=== PATIENT | female | born 1995 | race Hispanic/Latino ===

== ENCOUNTER 2018-01-27 20:43 | Emergency (ER) | payer OTHER, SELFPAY ==
[2018-01-27 21:22] LABS: Absolute Lymphocytes (CBC) 3.4 K/uL (0.7-4.9); Absolute Monocytes 0.5 K/uL (0.1-1.3); Absolute Neutrophil 4.2 K/uL (1.8-8.0); Basophils % 0.4 % (0-1.3); Eosinophils % 1.2 % (0-4.4); Hematocrit 37.8 % (36.0-45.0); Lymphocytes % 41.8 % (15.3-44.8); MCH 26.4 pg (27.0-35.0); MCV 78.8 fL (80-100); MPV 7.7 fL (7.6-11.3); Monocytes % 5.8 % (3.3-12.3)
[2018-01-27 21:26] LABS: Urine Blood 3+ (NEG); Urine Glucose NEGATIVE (NEG); Urine Protein NEGATIVE (NEG)
[2018-01-27 21:32] LABS: Urine Bacteria <20 /HPF (<20); Urine Culture Reflex Order NOT NEEDED; Urine Mucus 1+ /HPF (NONE SEEN); Urine RBC <5 /HPF (NONE SEEN)
[2018-01-27 21:39] LABS: ALT/SGPT 20 U/L (12-78); AST/SGOT 9 U/L (15-37); Albumin 4.7 g/dL (3.4-5.0); Alkaline Phosphatase 69 U/L (45-117); Amylase Level 47 U/L (25-115); BUN Blood Urea Nitrogen 15 mg/dL (7-18); Bicarbonate 27 mmol/L (21-32); Bilirubin Direct 0.1 mg/dL (0-0.2); Bilirubin Total 0.6 mg/dL (0.2-1.0); Glucose Level 86 mg/dL (74-106); Lipase 85 U/L (73-393); Potassium 3.3 mmol/L (3.5-5.1); Protein, Total 7.9 g/dL (6.4-8.2); Sodium Level 141 mmol/L (136-145)
[2018-01-27] MEDS ORDERED: NA CHLORIDE 0.9% 1,000 ML ONE (21:54)
[2018-01-27] MEDS ORDERED: KETOROLAC 30 MG/ML INJ ONE (21:54)
[2018-01-27] MEDS ORDERED: POTASSIUM 25 MEQ EFFERV TAB ONE (22:12)
--- NOTE | 2018-01-27 22:59 | ER ---
Nurse's Notes [facility] Name: Lindsey Fernandez Age: 22 yrs Sex: Female : 1995 Arrival Date: 01/27/2018 Time: 20:50 Bed 6 Private MD: Mil Khalil P Diagnosis: Pelvic and perineal pain;Endometriosis;Hypokalemia Presentation: 01/27 20:58 Presenting complaint: Patient states: "They think I have endometriosis. I have an lk1 exploratory surgery coming up. I have cramps and pain shooting down my legs. I have a history of ovarian cysts, so it may be that, but I am in so much pain.". Transition of care: patient was not received from another setting of care. Onset of symptoms was January 26, 2018. Risk Assessment: Do you want to hurt yourself or someone else? Patient reports no desire to harm self or others. Initial Sepsis Screen: Does the patient meet any 2 criteria? No. Patient's initial sepsis screen is negative. Does the patient have a suspected source of infection? No. Patient's initial sepsis screen is negative. Care prior to arrival: Medication(s) given: Motrin, Tylenol. 20:58 Method Of Arrival: Ambulatory lk1 20:58 Acuity: ANUM 3 lk1 Triage Assessment: 21:15 General: Appears in no apparent distress. uncomfortable, Behavior is calm, cooperative. rv 21:15 Pain: Complains of pain in abdomen. EENT: No signs and/or symptoms were reported rv regarding the EENT system. Neuro: Level of Consciousness is awake, alert, obeys commands, Oriented to person, place, time, situation. Cardiovascular: Heart tones S1 S2 present. Respiratory: Airway is patent. GI: Reports lower abdominal pain, nausea. : No signs and/or symptoms were reported regarding the genitourinary system. Derm: Skin is intact. 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 - Social history:: Smoking status: Patient/guardian denies using tobacco. - Ebola Screening: : No symptoms or risks identified at this time. - Family history:: not pertinent. Screenin:10 Abuse screen: Denies threats or abuse. Denies injuries from another. Nutritional bp screening: No deficits noted. Tuberculosis screening: No symptoms or risk factors identified. Fall Risk None identified. Assessment: 21:15 GI: Bowel sounds present X 4 quads. Abd is soft and non tender. rv 22:41 Reassessment: ultrasound done at bedside. rv Vital Signs: 21:01 BP 110 / 69; Pulse 81; Resp 15; Temp 98.1(TE); Pulse Ox 99% on R/A; Weight 45.36 kg lk1 (R); Height 5 ft. 0 in. (152.40 cm); Pain 9/10; 21:46 BP 114 / 67; Pulse 97; Resp 16; Pulse Ox 100% on R/A; rv 22:42 BP 100 / 75; Pulse 71; Resp 16; Pulse Ox 100% on R/A; rv 21:01 Body Mass Index 19.53 (45.36 kg, 152.40 cm) lk1 ED Course: 20:50 Patient arrived in ED. al2 20:51 Mil Khalil MD is Private Physician. al2 21:00 Triage completed. lk1 21:02 Arm band placed on right wrist. lk1 21:09 Yobany Quintana, RN is Primary Nurse. bp 21:10 Patient has correct armband on for positive identification. Bed in low position. Call bp light in reach. Side rails up X2. 21:40 Chris Negro MD is Attending Physician. giovani 22:19 Ultrasound completed. Patient tolerated well. sg3 22:24 US Transvaginal Study (Probe) In Process Unspecified. EDMS 22:58 Mil Khalil MD is Referral Physician. giovani 23:15 No provider procedures requiring assistance completed. IV discontinued, bleeding rv controlled, No redness/swelling at site. Pressure dressing applied. Administered Medications: 21:55 Drug: NS 0.9% 1000 ml Route: IV; Rate: 1 bolus; Site: right antecubital; rv 22:43 Follow up: Response: No adverse reaction; IV Status: Completed infusion rv 21:55 Drug: TORadol 30 mg Route: IVP; Site: right antecubital; rv 22:44 Follow up: Response: No adverse reaction; Pain is decreased rv 22:41 Drug: Potassium Effervescent Tablet 25 mEq Route: PO; rv 23:17 Follow up: Response: No adverse reaction rv 22:43 CANCELLED (Duplicate Order): Potassium Chloride 20 mEq PO once rv Outcome: 22:58 Discharge ordered by . giovani 23:16 Discharged to home ambulatory. rv 23:16 Condition: good 23:16 Discharge instructions given to patient, Instructed on discharge instructions, follow up and referral plans. medication usage. 23:17 Patient left the ED. rv Signatures: Dispatcher [employer] EDMS Chris Negro MD MD cha Kluge, Leah, RN RN lk1 Yobany Quintana RN RN Alee Pollack Angelica al2 Vicente, Ronaldo RN RN rv
[2018-01-27] MEDS ORDERED: IBUPROFEN 200 MG TAB PO ONE (23:16)
--- NOTE | 2018-01-27 23:18 | EDPHYS ---
Physician Documentation [facility] Name: Lindsey Fernandez Age: 22 yrs Sex: Female : 1995 Arrival Date: 01/27/2018 Time: 20:50 Bed 6 Private MD: Mil Khalil P ED Physician Chris Negro HPI: 01/27 21:53 This 22 yrs old Female presents to ER via Ambulatory with complaints of giovani Abdominal Pain, Leg Pain. 21:53 The patient presents with pain. 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 - Social history:: Smoking status: Patient/guardian denies using tobacco. - Ebola Screening: : No symptoms or risks identified at this time. - Family history:: not pertinent. ROS: 21:54 Constitutional: Negative for fever, chills, and weight loss, Eyes: Negative for injury, giovani pain, redness, and discharge, ENT: Negative for injury, pain, and discharge, Neck: Negative for injury, pain, and swelling, Cardiovascular: Negative for chest pain, palpitations, and edema, Respiratory: Negative for shortness of breath, cough, wheezing, and pleuritic chest pain, Abdomen/GI: Negative for abdominal pain, nausea, vomiting, diarrhea, and constipation, Back: Negative for injury and pain, MS/Extremity: Negative for injury and deformity, Skin: Negative for injury, rash, and discoloration, Neuro: Negative for headache, weakness, numbness, tingling, and seizure, Psych: Negative for depression, anxiety, suicide ideation, homicidal ideation, and hallucinations, Allergy/Immunology: Negative for hives, rash, and allergies, Endocrine: Negative for neck swelling, polydipsia, polyuria, polyphagia, and marked weight changes, Hematologic/Lymphatic: Negative for swollen nodes, abnormal bleeding, and unusual bruising. 21:54 : Positive for pelvic pain, of the suprapubic area, right lower quadrant and left lower quadrant. Exam: 21:54 Constitutional: This is a well developed, well nourished patient who is awake, alert, giovani and in no acute distress. Head/Face: Normocephalic, atraumatic. Eyes: Pupils equal round and reactive to light, extra-ocular motions intact. Lids and lashes normal. Conjunctiva and sclera are non-icteric and not injected. Cornea within normal limits. Periorbital areas with no swelling, redness, or edema. ENT: Nares patent. No nasal discharge, no septal abnormalities noted. Tympanic membranes are normal and external auditory canals are clear. Oropharynx with no redness, swelling, or masses, exudates, or evidence of obstruction, uvula midline. Mucous membranes moist. Neck: Trachea midline, no thyromegaly or masses palpated, and no cervical lymphadenopathy. Supple, full range of motion without nuchal rigidity, or vertebral point tenderness. No Meningismus. Chest/axilla: Normal chest wall appearance and motion. Nontender with no deformity. No lesions are appreciated. Cardiovascular: Regular rate and rhythm with a normal S1 and S2. No gallops, murmurs, or rubs. Normal PMI, no JVD. No pulse deficits. Respiratory: Lungs have equal breath sounds bilaterally, clear to auscultation and percussion. No rales, rhonchi or wheezes noted. No increased work of breathing, no retractions or nasal flaring. Back: No spinal tenderness. No costovertebral tenderness. Full range of motion. Female : Normal external genitalia. Skin: Warm, dry with normal turgor. Normal color with no rashes, no lesions, and no evidence of cellulitis. MS/ Extremity: Pulses equal, no cyanosis. Neurovascular intact. Full, normal range of motion. Neuro: Awake and alert, GCS 15, oriented to person, place, time, and situation. Cranial nerves II-XII grossly intact. Motor strength 5/5 in all extremities. Sensory grossly intact. Cerebellar exam normal. Normal gait. Psych: Awake, alert, with orientation to person, place and time. Behavior, mood, and affect are within normal limits. 21:54 Abdomen/GI: Inspection: abdomen appears normal, Bowel sounds: normal, Palpation: mild abdominal tenderness, moderate abdominal tenderness, in the right lower quadrant and left lower quadrant, Liver: no appreciated palpable abnormalities, Hernia: not appreciated. Vital Signs: 21:01 BP 110 / 69; Pulse 81; Resp 15; Temp 98.1(TE); Pulse Ox 99% on R/A; Weight 45.36 kg lk1 (R); Height 5 ft. 0 in. (152.40 cm); Pain 9/10; 21:46 BP 114 / 67; Pulse 97; Resp 16; Pulse Ox 100% on R/A; rv 22:42 BP 100 / 75; Pulse 71; Resp 16; Pulse Ox 100% on R/A; rv 21:01 Body Mass Index 19.53 (45.36 kg, 152.40 cm) lk1 MDM: 21:40 Patient medically screened. [facility] 21:56 Data reviewed: vital signs, nurses notes, lab test result(s), radiologic studies, giovani ultrasound. 01/27 21:12 Order name: Amylase, Serum; Complete Time: 21:41 bp 01/27 21:12 Order name: Basic Metabolic Panel; Complete Time: 21:41 bp 01/27 21:12 Order name: CBC with Diff; Complete Time: 21:41 bp 01/27 21:12 Order name: Creatinine for Radiology; Complete Time: 21:41 bp 01/27 21:12 Order name: Hepatic Function; Complete Time: 21:41 bp 01/27 21:12 Order name: Lipase; Complete Time: 21:41 bp 01/27 21:12 Order name: Urine Microscopic Only; Complete Time: 21:41 bp 01/27 21:14 Order name: Urine Dipstick--Ancillary (enter results); Complete Time: 21:41 eb 01/27 21:14 Order name: Urine --Ancillary (enter results); Complete Time: 21:41 eb 01/27 21:51 Order name: US Transvaginal Study (Probe) [facility] 01/27 21:12 Order name: Urine Test (obtain specimen); Complete Time: 21:27 bp 01/27 21:12 Order name: IV Saline Lock; Complete Time: 21:26 bp 01/27 21:12 Order name: Labs collected and sent; Complete Time: 21:26 bp 01/27 21:12 Order name: Urine Dipstick-Ancillary (obtain specimen); Complete Time: 21:28 bp Administered Medications: 21:55 Drug: NS 0.9% 1000 ml Route: IV; Rate: 1 bolus; Site: right antecubital; rv 22:43 Follow up: Response: No adverse reaction; IV Status: Completed infusion rv 21:55 Drug: TORadol 30 mg Route: IVP; Site: right antecubital; rv 22:44 Follow up: Response: No adverse reaction; Pain is decreased rv 22:41 Drug: Potassium Effervescent Tablet 25 mEq Route: PO; rv 23:17 Follow up: Response: No adverse reaction rv 22:43 CANCELLED (Duplicate Order): Potassium Chloride 20 mEq PO once rv Disposition: 01/27/18 22:58 Discharged to Home. Impression: Pelvic and perineal pain, Endometriosis, Hypokalemia. - Condition is Stable. - Discharge Instructions: Abdominal Pain, Adult, Potassium Content of Foods, Ovarian Cyst, Pelvic Pain, Female, Pelvic Pain, Female, [id number], Ovarian Cyst, [id number], Hypokalemia. - Prescriptions for Tylenol- Codeine #3 300-30 mg Oral Tablet - take 2 tablets by ORAL route every 6 hours As needed; 26 tablet. Motrin IB 200 mg Oral Tablet - take 2 tablet by ORAL route every 6 hours As needed as needed with food; 30 tablet. - Medication Reconciliation Form, Thank You Letter, Antibiotic Education, Prescription Opioid Use form. - Follow up: Mil Khalil; When: 2 - 3 days; Reason: Recheck today's complaints, Continuance of care, Re-evaluation by your physician. - Problem is new. - Symptoms have improved. Signatures: Dispatcher [employer] EDMS Chris Negro MD MD cha Kluge, Leah RN RN lk1 Yobany Quintana, RN RN Leonides Delgado RN RN rv Corrections: (The following items were deleted from the chart) 22:43 21:56 Potassium Chloride Liquid 20 mEq PO once ordered. giovani rv 22:43 22:40 Potassium Chloride Liquid 20 mEq PO once ordered. rv rv 23:17 22:58 01/27/2018 22:58 Discharged to Home. Impression: Pelvic and perineal pain; rv Endometriosis; Hypokalemia. Condition is Stable. Discharge Instructions: Abdominal Pain, Adult, Pelvic Pain, Female, Pelvic Pain, Female, [id number], Potassium Content of Foods, Hypokalemia. Prescriptions for Tylenol-Codeine #3 300-30 mg Oral Tablet - take 2 tablets by ORAL route every 6 hours As needed; 26 tablet, Motrin IB 200 mg Oral Tablet - take 2 tablet by ORAL route every 6 hours As needed as needed with food; 30 tablet. and Forms are Medication Reconciliation Form, Thank You Letter, Antibiotic Education, Prescription Opioid Use. Follow up: Mil Khalil; When: 2 - 3 days; Reason: Recheck today's complaints, Continuance of care, Re-evaluation by your physician. Problem is new. Symptoms have improved. giovani
--- NOTE | 2018-01-28 06:41 | RAD REPORT ---
EXAM DESCRIPTION: US - Transvaginal Study Probe - 01/27/2018 10:24 pm CLINICAL HISTORY: Pelvic pain Preliminary findings provided at the time of the study. COMPARISON: Endovaginal ultrasound December 03, 2017 TECHNIQUE: Endovaginal sonography was performed. FINDINGS: Endometrium is 2 mm in maximum thickness with no endometrial mass or polyp identifiable. N o abnormal fluid or blood within the endometrial cavity. Endometrium - myometrium interface is normal . Uterus is 6.6 x 2.8 x 4.0 cm. No myometrial mass identifiable. Right ovary is 3.1 x 2.1 x 2.6 cm. Left ovary is 3.8 x 1.6 x 2.2 cm. Small cysts/follicles are seen i n each ovary. Doppler evaluation shows normal blood flow pattern within the ovarian stroma. No abnorm al increased echogenicity of the ovarian stroma. No fallopian tube dilatation. There is no free fluid in the cul-de-sac. No suspicious adnexal finding. IMPRESSION: Negative pelvic ultrasound.
== END 2018-01-27 23:17 | disposition home or self-care (01) ==
LOC: ER 20:43
DX: N80.9 Endometriosis, unspecified (principal); E87.6 Hypokalemia; Z88.6 Allergy status to analgesic agent
CPT/HCPCS: 36415; 76830; 80048; 80076; 81003; 81015; 81025; 82150; 83690; 85025; 96361; 96374; 99283; J7030

== ENCOUNTER 2018-02-13 09:35 | Day surgery (SDC) | payer OTHER ==
[2018-02-12 14:34] LABS: Absolute Lymphocytes (CBC) 2.2 K/uL (0.7-4.9); Absolute Monocytes 0.3 K/uL (0.1-1.3); Absolute Neutrophil 3.1 K/uL (1.8-8.0); Basophils % 0.5 % (0-1.3); Hematocrit 37.7 % (36.0-45.0); Lymphocytes % 38.6 % (15.3-44.8); MCH 26.3 pg (27.0-35.0); MCV 79.2 fL (80-100); MPV 8.4 fL (7.6-11.3); RBC Red Blood Cell Count 4.77 M/uL (3.86-4.86)
--- NOTE | 2018-02-12 17:21 | PREOPHP ---
Date of Admission: 02/12/2018 History Of Present Illness: Ms. Fernandez is a 22-year-old female, 2, para 2-0-0-2, who is admitted for diagnostic laparoscopy for pelvic pain including dyspareunia and dysmenorrhea. S he has had increasing difficulty since deliver of her second child about 2 years ago with increasing problems with pelvic pain and dyspareunia. She shows no signs of chronic infection. She has been to the emergency room once or twice because of pelvic pain. Ultrasounds have shown no evidence of cyst or other significant visible pelvic pathology. Because of this, she is undergoing diagnostic laparo scopy. Past Medical History: Includes 2 prior vaginal deliveries of infants approximately 36 weeks gestations, 2 laparoscopies for ovarian cysts. She has no other significant hospitalizations, accide nts, illnesses, injuries. Medications: She is on no medications on a regular basis. Allergies: SHE HAS NO KNOWN ALLERGIES. Social History: She does not smoke. Family History: Noncontributory. Review of Systems: She reports no recent cough, cold, fever, or chills. No recent nausea or vomiting. She denies any b reast lumps. She denies any bowel or bladder symptoms. She denies any change in vaginal discharge. Physical Examination: General: Petite, female, in no apparent distress. Neck: Supple without adenopathy or thyromegaly. Lungs: Clear. Cardiac: Regular rate and rhythm without murmurs. Breasts: Not examined. Abdomen: Without organosplenomegaly. Pelvic: Normal female external genitalia. Vaginal wall is pink and rugated. Cervix, multiparous, d ischarge clean. Bimanual, there is some cervical motion tenderness present. No obvious adnexal mass es or tenderness. Impression: Pelvic pain including dyspareunia and dysmenorrhea. Plan: The patient will undergo diagnostic laparoscopy. The risks and benefits are discussed and she has signed operative permit in my presence. WU/KEHINDE Voice ID: [id number]
[2018-02-13] MEDS ORDERED: Ringers Lactate 1,000 ML IV ONE (09:46)
[2018-02-13] MEDS ORDERED: PROPOFOL 200 MG/20 ML VIAL IV ONE (09:57)
[2018-02-13] MEDS ORDERED: GLYCOPYRROLATE 0.2 MG/ML SYR ONE (09:58)
[2018-02-13] MEDS ORDERED: MIDAZOLAM HCL 2 MG/2 ML INJ ONE (09:58)
[2018-02-13] MEDS ORDERED: FENTANYL CITR 100 MCG/2 ML ONE ×2 (09:59→11:56)
[2018-02-13] MEDS ORDERED: LIDOCAINE 2% MPF 5 ML VIAL ONE (09:59)
[2018-02-13] MEDS ORDERED: NEOSTIGMINE 1 MG/ML -5 ML SYRINGE ONE (10:00)
[2018-02-13] MEDS ORDERED: ROCURONIUM 50 MG/5 ML VIAL IV ONE (10:02)
[2018-02-13] MEDS ORDERED: SILVER NITRATE 1 APPL TOP ONE (10:37)
[2018-02-13] MEDS ORDERED: BUPIVACAINE 0.5% PF 10 ML VIAL ONE (10:37)
[2018-02-13] MEDS: MEPERIDINE HCL 50 MG/ML AMP ONE ×4 (12:04→12:25)
--- NOTE | 2018-02-13 12:10 | P.BOP ---
Preoperative diagnosis: Pelvic pain Postoperative diagnosis: same, normal pelvis by laparoscopy Primary procedure: DX laparoscopy Estimated blood loss: less than 5 ml Anesthesia: General Complications: None Transferred to: Recovery Room Condition: Good
[2018-02-13] MEDS ORDERED: ETONOGESTREL 68 MG SQ SCH (12:15)
[2018-02-13] MEDS: MIDAZOLAM HCL 2 MG/2 ML INJ ONE ×2 (12:15→12:30)
[2018-02-13] MEDS: MORPHINE 4 MG/ML SYR ONE ×2 (12:35→12:40)
[2018-02-13] MEDS ORDERED: MORPHINE 4 MG/ML SYR ONE (12:55)
[2018-02-13] MEDS ORDERED: HYDROCODONE/APAP 7.5/325 MG TAB ONE (13:43)
[2018-02-13] MEDS ORDERED: ONDANSETRON 4 MG/2 ML VIAL ONE (13:43)
--- NOTE | 2018-02-13 22:22 | OP ---
Surgeon: Mil Khalil MD Preoperative Diagnoses: Dyspareunia, dysmenorrhea. Procedure: Diagnostic laparoscopy. Postoperative Diagnoses: Dyspareunia, dysmenorrhea. Description Of Procedure: After a satisfactory level of general anesthesia was obtained, the patient was prepped and draped in the usual fashion for abdominal surgery in low leg holders. A weighted sp eculum was placed in the vagina. Cervix visualized and grasped with a single-tooth tenaculum and a u terine manipulator was placed. Infraumbilical skin and suprapubic skin were infiltrated with a total of approximately 5 mL of 0.5% Marcaine. A vertical umbilical incision was made and carried down to the fascia. The fascia was incised and grasped with trocars. Peritoneum entered bluntly. Stay sutu res of #1 Vicryl were placed in the fascia and a trocar was placed, and the peritoneal cavity was ins ufflated with carbon dioxide. Under direct visualization, a 5 mm port was placed in the suprapubic r egion. Uterus and tubes and ovaries appeared to be normal as did the appendix. There were no perihe patic adhesions. Fluid volume was normal. Ovaries were normal, free, with no evidence of infection. No evidence of endometriosis. 5 mm port removed under direct visualization. Trocar removed. Carb on dioxide allowed to escape. The fascia was closed in the umbilical incision with stay sutures of # 1 Vicryl, two simple sutures of 2-0 Vicryl placed in subcutaneous tissue and the umbilical incision, and an incision closed with subcuticular suture of 4-0 Monocryl. The suprapubic incision was closed with one 5 mm subcutaneous suture of 2-0 Vicryl and closed with Monocryl in a subcuticular fashion. Good hemostasis was noted. Tegaderm dressings were placed. The patient was awakened after removal o f the cervical manipulator and taken to the recovery room in satisfactory condition. Sponge and need le counts were correct x2. Anesthesia: Nadira Antonio CRNA and Dr. Brunson. MPG/MODL Voice ID: [id number] Report ID: [id number]
--- NOTE | 2018-02-13 22:27 | DS ---
Date of Discharge: 02/13/2018 DISMISSAL SUMMARY Final Hospital Discharge Diagnosis: Pelvic pain. Complications: None. Procedures: Diagnostic laparoscopy. Hospital Course: The patient is a 22-year-old female, admitted for evaluation of dyspareuni a and dysmenorrhea, unresponsive to outpatient management. Underwent diagnostic laparoscopy. Uterus , tubes, and ovaries appeared to be normal as did the appendix. No evidence of endometriosis was not ed. No scar tissue or evidence of past infection was noted. The patient was dismissed with a prescr iption of Tylenol No. 3, #10, called in to a local pharmacy and to be seen back in my office in [address] [place] [address] with usual post laparoscopy activity restrictions. WU/KEHINDE Voice ID: [id number] Report ID: [id number]
== END 2018-02-13 14:55 | disposition home or self-care (01) ==
LOC: OR 09:35
PROVIDERS: ATTEND Specialist
PROC: 0WJG4ZZ Inspection of Peritoneal Cavity, Percutaneous Endoscopic Approach (ICD-10-PCS; 2018-02-13)
PROC: 0WJJ4ZZ Inspection of Pelvic Cavity, Percutaneous Endoscopic Approach (ICD-10-PCS; principal; 2018-02-13 11:00)
DX: N94.10 Unspecified dyspareunia (principal); N94.6 Dysmenorrhea, unspecified; R10.2 Pelvic and perineal pain; Z88.6 Allergy status to analgesic agent
CPT/HCPCS: 36415; 84703; 85025; J2175; J2250; J2405; J2710; J3010

== ENCOUNTER 2018-07-18 21:00 | Emergency (ER) | payer SELFPAY ==
[2018-07-18 21:30] LABS: Urine Specific Gravity 1.025 (1.005-1.030)
[2018-07-18 21:30] LABS: Urine Blood NEGATIVE (NEG); Urine Glucose NEGATIVE (NEG); Urine Protein 1+ (NEG); Urine Specific Gravity 1.025 (1.005-1.030)
[2018-07-18] MEDS ORDERED: NA CHLORIDE 0.9% 1,000 ML ONE (22:03)
[2018-07-18 22:23] LABS: Urine Bacteria <20 /HPF (<20); Urine Culture Reflex Order NOT NEEDED; Urine Mucus HEAVY /HPF (NONE SEEN); Urine RBC NONE SEEN /HPF (NONE SEEN)
[2018-07-18 22:36] LABS: Absolute Lymphocytes (CBC) 2.6 K/uL (0.7-4.9); Absolute Monocytes 0.5 K/uL (0.1-1.3); Absolute Neutrophil 4.6 K/uL (1.8-8.0); Basophils % 0.4 % (0-1.3); Eosinophils % 1.2 % (0-4.4); Hematocrit 37.5 % (36.0-45.0); Lymphocytes % 33.3 % (15.3-44.8); MPV 8.7 fL (7.6-11.3); Monocytes % 6.3 % (3.3-12.3); RBC Red Blood Cell Count 4.74 M/uL (3.86-4.86)
--- NOTE | 2018-07-18 22:40 | RAD REPORT ---
EXAM DESCRIPTION: US - Transvaginal OB - 07/18/2018 10:28 pm CLINICAL HISTORY: with abdominal pain COMPARISON: None. FINDINGS: The uterus 8 x 5 x 5 centimeters. The endometrial stripe measures 18 millimeters. A gesta tional sac is not seen. The ovaries are normal in size and echotexture. . No significant free fluid is seen. IMPRESSION: These findings may represent an early intrauterine in which the gestational sa c is not yet seen. An incomplete and even an ectopic can also result in this appea akosua. This all should be correlated clinically and with serial beta HCG levels. Followup endovaginal sonogram in 1 week is recommended
[2018-07-18 23:17] LABS: BUN Blood Urea Nitrogen 13 mg/dL (7-18); Bicarbonate 25 mmol/L (21-32); Glucose Level 95 mg/dL (74-106); HCG, Quantitative 1165 mIU/mL (1-3); Potassium 3.3 mmol/L (3.5-5.1); Sodium Level 137 mmol/L (136-145)
--- NOTE | 2018-07-18 23:33 | EDPHYS ---
Physician Documentation [facility] Name: Lindsey Fernandez Age: 22 yrs Sex: Female : 1995 Arrival Date: 07/18/2018 Time: 21:02 Bed 19 Private MD: ED Physician Chris Negro HPI: 07/18 21:34 This 22 yrs old Female presents to ER via Ambulatory with complaints of giovani Abdominal Pain. 21:34 The patient presents with abdominal pain. 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 - Social history:: Smoking status: Patient/guardian denies using tobacco. - Ebola Screening: : No symptoms or risks identified at this time. ROS: 21:34 Constitutional: Negative for fever, chills, and weight loss, Eyes: Negative for injury, giovani pain, redness, and discharge, ENT: Negative for injury, pain, and discharge, Neck: Negative for injury, pain, and swelling, Cardiovascular: Negative for chest pain, palpitations, and edema, Respiratory: Negative for shortness of breath, cough, wheezing, and pleuritic chest pain, Back: Negative for injury and pain, : Negative for injury, bleeding, discharge, and swelling, MS/Extremity: Negative for injury and deformity, Skin: Negative for injury, rash, and discoloration, Neuro: Negative for headache, weakness, numbness, tingling, and seizure, Psych: Negative for depression, anxiety, suicide ideation, homicidal ideation, and hallucinations, Allergy/Immunology: Negative for hives, rash, and allergies, Endocrine: Negative for neck swelling, polydipsia, polyuria, polyphagia, and marked weight changes, Hematologic/Lymphatic: Negative for swollen nodes, abnormal bleeding, and unusual bruising. 21:34 Abdomen/GI: Positive for abdominal pain, of the left lower quadrant. Exam: 21:34 Constitutional: This is a well developed, well nourished patient who is awake, alert, giovani and in no acute distress. Head/Face: Normocephalic, atraumatic. Eyes: Pupils equal round and reactive to light, extra-ocular motions intact. Lids and lashes normal. Conjunctiva and sclera are non-icteric and not injected. Cornea within normal limits. Periorbital areas with no swelling, redness, or edema. ENT: Nares patent. No nasal discharge, no septal abnormalities noted. Tympanic membranes are normal and external auditory canals are clear. Oropharynx with no redness, swelling, or masses, exudates, or evidence of obstruction, uvula midline. Mucous membranes moist. Neck: Trachea midline, no thyromegaly or masses palpated, and no cervical lymphadenopathy. Supple, full range of motion without nuchal rigidity, or vertebral point tenderness. No Meningismus. Chest/axilla: Normal chest wall appearance and motion. Nontender with no deformity. No lesions are appreciated. Cardiovascular: Regular rate and rhythm with a normal S1 and S2. No gallops, murmurs, or rubs. Normal PMI, no JVD. No pulse deficits. Respiratory: Lungs have equal breath sounds bilaterally, clear to auscultation and percussion. No rales, rhonchi or wheezes noted. No increased work of breathing, no retractions or nasal flaring. Back: No spinal tenderness. No costovertebral tenderness. Full range of motion. Female : Normal external genitalia. Skin: Warm, dry with normal turgor. Normal color with no rashes, no lesions, and no evidence of cellulitis. MS/ Extremity: Pulses equal, no cyanosis. Neurovascular intact. Full, normal range of motion. Neuro: Awake and alert, GCS 15, oriented to person, place, time, and situation. Cranial nerves II-XII grossly intact. Motor strength 5/5 in all extremities. Sensory grossly intact. Cerebellar exam normal. Normal gait. Psych: Awake, alert, with orientation to person, place and time. Behavior, mood, and affect are within normal limits. 21:34 Abdomen/GI: Inspection: abdomen appears normal, Bowel sounds: normal, Palpation: moderate abdominal tenderness, in the left lower quadrant, Liver: no appreciated palpable abnormalities, Hernia: not appreciated. Vital Signs: 21:22 BP 126 / 87; Pulse 87; Resp 18; Temp 98.3; Pulse Ox 100% on R/A; Weight 45.36 kg; ca1 Height 4 ft. 11 in. (149.86 cm); Pain 7/10; 22:25 BP 122 / 82; Pulse 91; Resp 18; Pulse Ox 100% on R/A; ca1 23:30 BP 102 / 72; Pulse 80; Resp 19; Pulse Ox 100% on R/A; ca1 21:22 Body Mass Index 20.20 (45.36 kg, 149.86 cm) ca1 MDM: 21:04 Patient medically screened. [facility] 21:36 Data reviewed: vital signs, nurses notes, lab test result(s), radiologic studies, [facility] ultrasound. 07/18 21:16 Order name: Urine Dipstick--Ancillary (enter results); Complete Time: 22:37 ds4 07/18 21:16 Order name: Urine Microscopic Only; Complete Time: 22:37 ds4 07/18 21:17 Order name: Urine --Ancillary (enter results); Complete Time: 22:37 ds4 07/18 21:37 Order name: Quantitative Hcg [facility] 07/18 21:37 Order name: Abo/rh Typing; Complete Time: 22:59 [facility] 07/18 21:37 Order name: Basic Metabolic Panel [facility] 07/18 21:37 Order name: CBC with Diff; Complete Time: 22:38 [facility] 07/18 21:37 Order name: US Transvaginal Ob; Complete Time: 22:59 [facility] 07/18 21:38 Order name: HCG, Quantitative; Complete Time: 23:28 EDMS 07/18 21:38 Order name: Basic Metabolic Panel; Complete Time: 23:28 EDKY 07/18 23:31 Order name: Urine Culture [facility] 07/18 21:15 Order name: Urine Dipstick-Ancillary (obtain specimen); Complete Time: 21:15 [facility] 07/18 21:15 Order name: Urine Test (obtain specimen); Complete Time: 21:15 [facility] 07/18 21:37 Order name: IV Saline Lock; Complete Time: 21:38 [facility] 07/18 21:37 Order name: Labs collected and sent; Complete Time: 21:38 [facility] 07/18 21:37 Order name: NPO; Complete Time: 21:38 [facility] Administered Medications: 22:31 Drug: NS 0.9% 1000 ml Route: IV; Rate: 1 bolus; Site: right antecubital; [facility] 07/19 00:16 Follow up: Response: No adverse reaction; IV Status: Completed infusion [facility] 07/18 23:47 CANCELLED (Duplicate Order): Rocephin 1 grams IV at 1 calculated rate once; Given slow ca1 IV push per pharmacy instructions 23:48 CANCELLED (Other Intervention Used): Rocephin - (cefTRIAXone) 1 grams IVPB once over 30 ca1 mins; (mix in 50 mL NS) 23:50 Drug: Rocephin 1 grams Route: IV; Rate: calculated rate; Site: left antecubital; ca1 07/19 00:15 Follow up: Response: No adverse reaction; IV Status: Completed infusion ca1 00:15 Follow up: Response: No adverse reaction ca1 00:00 Drug: Zofran 4 mg Route: IVP; Site: left antecubital; ca1 00:16 Follow up: Response: No adverse reaction ca1 00:15 Not Given (Patient Refused): Potassium Effervescent Tablet 25 mEq PO once; dissolve in ca1 4 ounces of water or juice Disposition: 07/18/18 23:32 Discharged to Home. Impression: Pelvic and perineal pain, related conditions, unspecified, first trimester, Urinary tract infection, site not specified. - Condition is Stable. - Discharge Instructions: Pelvic Pain, Female, Urinary Tract Infection, Adult, First Trimester of , [id number], Urinary Tract Infection, Adult, [id number], First Trimester of , Pelvic Rest. - Prescriptions for Augmentin 500- 125 mg Oral Tablet - take 1 tablet by ORAL route every 8 hours for 10 days; 21 tablet. Vitamin 27- 0.8 mg Oral Tablet - take 1 tablet by ORAL route once daily; 30 tablet. Diclegis 10- 10 mg Oral tablet,delayed release (DR/EC) - take 1 tablet by ORAL route 3 times per day and 2 tablets at bedtime; 60 tablet. - Medication Reconciliation Form, Thank You Letter, Antibiotic Education, Prescription Opioid Use form. - Follow up: Private Physician; When: 2 - 3 days; Reason: Recheck today's complaints, Continuance of care, Re-evaluation by your physician. - Problem is new. - Symptoms have improved. Signatures: Dispatcher [employer] EDChris Chan MD MD cha Swanson, Donovan ds4 Twila Sanchez RN RN ca1 Corrections: (The following items were deleted from the chart) 07/18 23:47 23:46 Rocephin 1 grams IV at 1 calculated rate once; Given slow IV push per pharmacy ca1 instructions ordered. ca1 23:48 23:31 Rocephin - (cefTRIAXone) 1 grams IVPB once over 30 mins; (mix in 50 mL NS) ca1 ordered. giovani 23:48 23:48 Rocephin - (cefTRIAXone) 1 grams IVPB once over 30 mins; (mix in 50 mL NS) ca1 ordered. ca1 07/19 00:21 07/18 23:32 07/18/2018 23:32 Discharged to Home. Impression: Pelvic and perineal pain; ca1 related conditions, unspecified, first trimester; Urinary tract infection, site not specified. Condition is Stable. Forms are Medication Reconciliation Form, Thank You Letter, Antibiotic Education, Prescription Opioid Use. Follow up: Private Physician; When: 2 - 3 days; Reason: Recheck today's complaints, Continuance of care, Re-evaluation by your physician. Problem is new. Symptoms have improved. giovani
--- NOTE | 2018-07-18 23:33 | ER ---
Nurse's Notes [facility] Name: Lindsey Fernandez Age: 22 yrs Sex: Female : 1995 Arrival Date: 07/18/2018 Time: 21:02 Bed 19 Private MD: Diagnosis: Pelvic and perineal pain; related conditions, unspecified, first trimester;Urinary tract infection, site not specified Presentation: 07/18 21:13 Presenting complaint: Patient states: int LLQ pain for the past several months. Had ca1 exploratory procedure for possible endometriosis but reports findings were negative. States she came to the ER today because pain was more intense that it was. Transition of care: patient was not received from another setting of care. Onset of symptoms was February 2018. Risk Assessment: Do you want to hurt yourself or someone else? Patient reports no desire to harm self or others. Initial Sepsis Screen: Does the patient meet any 2 criteria? No. Patient's initial sepsis screen is negative. Does the patient have a suspected source of infection? No. Patient's initial sepsis screen is negative. Care prior to arrival: None. 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 - Social history:: Smoking status: Patient/guardian denies using tobacco. - Ebola Screening: : No symptoms or risks identified at this time. Screenin:24 Abuse screen: Denies threats or abuse. Denies injuries from another. Nutritional ca1 screening: No deficits noted. Tuberculosis screening: No symptoms or risk factors identified. Fall Risk None identified. Assessment: 21:24 General: Appears in no apparent distress. comfortable, Behavior is calm, cooperative, ca1 appropriate for age. Pain: Complains of pain in left lower quadrant Pain currently is 7 out of 10 on a pain scale. Quality of pain is described as sharp, stabbing, Pain began several months ago. Is intermittent. Neuro: Level of Consciousness is awake, alert, obeys commands, Oriented to person, place, time, situation. Cardiovascular: Heart tones S1 S2 present Capillary refill < 3 seconds Patient's skin is warm and dry. Respiratory: Airway is patent Trachea midline Respiratory effort is even, unlabored, Respiratory pattern is regular, symmetrical, Breath sounds are clear bilaterally. GI: Abdomen is flat, non-distended, Bowel sounds present X 4 quads. Abd is soft X 4 quads Abdomen is tender to palpation in left lower quadrant Patient currently denies constipation, diarrhea, nausea, vomiting. : No signs and/or symptoms were reported regarding the genitourinary system. : No signs and/or symptoms were reported regarding the genitourinary system. Denies vaginal bleeding. EENT: No signs and/or symptoms were reported regarding the EENT system. Derm: Skin is intact, is healthy with good turgor, Skin is pink, warm \T\ dry. Musculoskeletal: Circulation, motion, and sensation intact. Capillary refill < 3 seconds. 22:25 Reassessment: Patient appears in no apparent distress at this time. Patient and/or ca1 family updated on plan of care and expected duration. Pain level reassessed. Patient is alert, oriented x 3, equal unlabored respirations, skin warm/dry/pink. . 07/19 00:00 Reassessment: Patient appears in no apparent distress at this time. Patient and/or ca1 family updated on plan of care and expected duration. Pain level reassessed. Patient is alert, oriented x 3, equal unlabored respirations, skin warm/dry/pink. 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 . Vital Signs: 07/18 21:22 BP 126 / 87; Pulse 87; Resp 18; Temp 98.3; Pulse Ox 100% on R/A; Weight 45.36 kg; ca1 Height 4 ft. 11 in. (149.86 cm); Pain 7/10; 22:25 BP 122 / 82; Pulse 91; Resp 18; Pulse Ox 100% on R/A; ca1 23:30 BP 102 / 72; Pulse 80; Resp 19; Pulse Ox 100% on R/A; ca1 21:22 Body Mass Index 20.20 (45.36 kg, 149.86 cm) ca1 ED Course: 21:02 Patient arrived in ED. al2 21:04 Chris Negro MD is Attending Physician. [facility] 21:12 Acob, Twila, RN is Primary Nurse. ca1 21:17 Urine Dipstick--Ancillary (enter results) Sent. ds4 21:17 Urine Microscopic Only Sent. ds4 21:18 Urine --Ancillary (enter results) Sent. ds4 21:18 Urine Microscopic Only Sent. ds4 21:18 Urine Dipstick--Ancillary (enter results) Sent. ds4 21:20 Triage completed. ca1 21:22 Arm band placed on right wrist. ca1 21:24 Patient has correct armband on for positive identification. Bed in low position. Call ca1 light in reach. Side rails up X 1. 21:24 Pulse ox on. NIBP on. Warm blanket given. ca1 21:47 Radiology exam delayed due to IV insertion attempt and/or patient not having cy appropriate IV at this time. 22:11 Inserted saline lock: 24 gauge in left antecubital area, using aseptic technique. ag4 22:24 Ultrasound completed. Patient tolerated well. cy 22:25 US Transvaginal Ob In Process Unspecified. EDMS 22:31 Inserted saline lock: Blood collected. ag4 23:30 No provider procedures requiring assistance completed. IV discontinued, intact, ca1 bleeding controlled, No redness/swelling at site. Pressure dressing applied. Administered Medications: 22:31 Drug: NS 0.9% 1000 ml Route: IV; Rate: 1 bolus; Site: right antecubital; ca1 07/19 00:16 Follow up: Response: No adverse reaction; IV Status: Completed infusion ca1 07/18 23:47 CANCELLED (Duplicate Order): Rocephin 1 grams IV at 1 calculated rate once; Given slow ca1 IV push per pharmacy instructions 23:48 CANCELLED (Other Intervention Used): Rocephin - (cefTRIAXone) 1 grams IVPB once over 30 ca1 mins; (mix in 50 mL NS) 23:50 Drug: Rocephin 1 grams Route: IV; Rate: calculated rate; Site: left antecubital; ca1 07/19 00:15 Follow up: Response: No adverse reaction; IV Status: Completed infusion ca1 00:15 Follow up: Response: No adverse reaction ca1 00:00 Drug: Zofran 4 mg Route: IVP; Site: left antecubital; ca1 00:16 Follow up: Response: No adverse reaction ca1 00:15 Not Given (Patient Refused): Potassium Effervescent Tablet 25 mEq PO once; dissolve in ca1 4 ounces of water or juice Outcome: 07/18 23:30 Discharged to home ambulatory. ca1 Condition: stable Discharge instructions given to patient, Instructed on discharge instructions, follow up and referral plans. medication usage, Demonstrated understanding of instructions, follow-up care, medications, Prescriptions given X 3. 23:32 Discharge ordered by MD. matute 07/19 00:21 Patient left the ED. ca1 Signatures: Dispatcher [employer] EDNV Chris Negro MD MD cha Swanson, Donovan ds4 Alli Castillo Angelica al2 Guzman, Adan ag4 Twila Sanchez, RN RN ca1
[2018-07-18] MEDS ORDERED: POTASSIUM 25 MEQ EFFERV TAB ONE (23:49)
[2018-07-18] MEDS ORDERED: CEFTRIAXONE/SWI 1gm 1 GM/10 ML SYR ONE (23:50)
[2018-07-19] MEDS ORDERED: ONDANSETRON 4 MG/2 ML VIAL ONE (00:08)
== END 2018-07-19 00:21 | disposition home or self-care (01) ==
LOC: ER 21:00
DX: O23.41 Unspecified infection of urinary tract in pregnancy, first trimester (principal); Z88.5 Allergy status to narcotic agent
CPT/HCPCS: 36415; 76817; 80048; 81003; 81015; 81025; 84702; 85025; 86900; 86901; 87086; 87088; 96361; 96365; 96375; 99284; J0696; J2405; J7030